=== PATIENT | female | born 1970 | race Caucasian/White ===

== ENCOUNTER 2023-11-26 13:09 | Emergency (ER) | payer OTHER ==
[2023-11-26] MEDS ORDERED: methocarbamoL 750 MG TAB ONE (15:05)
[2023-11-26] MEDS ORDERED: ACETAMINOPHEN 325 MG TABLET ONE (15:06)
--- NOTE | 2023-11-26 15:09 | RAD REPORT ---
EXAM DESCRIPTION: RAD - C Spine Ap/Lat - 11/26/2023 2:22 pm CLINICAL HISTORY: fall COMPARISON: No comparisons TECHNIQUE: Cervical spine, 3 views. FINDINGS: Cervical vertebral bodies are normal in height. Straightening of normal cervical lordosis which may be positional or secondary to muscle spasm. C7 and T1 levels are not well visualized due to superimposition of shoulder soft tissues. No fracture or acute bony process seen. Up to moderate deg enerative changes of the endplates and facet articulations, with moderate disc height loss at C4-5 an d C5-6. There is no prevertebral soft tissue thickening or other suspicious soft tissue finding. IMPRESSION: No acute osseous abnormality or subluxation. Straightening of normal lordosis which may be positional or secondary to muscle spasm. Degenerative changes as above.
--- NOTE | 2023-11-26 15:10 | RAD REPORT ---
EXAM DESCRIPTION: RAD - Thoracic Spine Ap/Lat - 11/26/2023 2:22 pm CLINICAL HISTORY: fall;Pain COMPARISON: SPINE THORACICAP LAT dated 09/25/2013 TECHNIQUE: Thoracic spine, 2 views. FINDINGS: Thoracic vertebral bodies are normal in height, with stable alignment including mild levoc onvex curvature of the upper thoracic spine, apex at T3-4. There are no acute or destructive bony pro cesses see. No paraspinal masses are identified. No disc space narrowing. IMPRESSION: No acute osseus abnormality. Stable findings as above.
--- NOTE | 2023-11-26 15:12 | RAD REPORT ---
EXAM DESCRIPTION: RAD - Femur Right - 11/26/2023 2:21 pm CLINICAL HISTORY: fall COMPARISON: No comparisons TECHNIQUE: Right femur, 2 views. FINDINGS: No fracture is identified. There is no dislocation or periosteal reaction noted. Mild dege nerative changes of the knee joint. No acute or suspicious bony finding. Surgical clips along the rig ht side of the pelvis. IMPRESSION: No acute osseus abnormality. Mild knee joint degenerative changes.
--- NOTE | 2023-11-26 15:29 | RAD REPORT ---
EXAM DESCRIPTION: RAD - Elbow Left 3 View - 11/26/2023 2:21 pm CLINICAL HISTORY: fall;Pain COMPARISON: No comparisons TECHNIQUE: Left elbow, 3 views. FINDINGS: No fracture is identified. No elevated posterior fat pad to suggest an effusion. There is no dislocation or periosteal reaction noted. No foreign body or other soft tissue abnormalit y. IMPRESSION: Negative left elbow examination.
--- NOTE | 2023-11-26 15:31 | RAD REPORT ---
EXAM DESCRIPTION: RAD - Pelvis - 11/26/2023 2:21 pm CLINICAL HISTORY: fall COMPARISON: No comparisons TECHNIQUE: Single AP view of the pelvis. FINDINGS: The visualized pelvic ring is intact. No suspicious osseous lesions. No significant degene rative changes or erosions of the hip joints. Other pelvic joints are unremarkable. Surgical clips pr oject throughout the pelvis. Visualized aspects of the abdomen and soft tissues are unremarkable. IMPRESSION: No acute osseous abnormality of the bony pelvis.
--- NOTE | 2023-11-26 15:40 | EDPHYS ---
Physician Documentation [facility] Name: Meredith Peter Age: 53 yrs Sex: Female : 1970 Arrival Date: 11/26/2023 Time: 13:09 Bed 11 Private MD: ED Physician Fermín Franks HPI: 11/25 13:45 This 53 yrs old Female presents to ER via Ambulatory with complaints of Fall Injury. 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 - Infectious Disease History:: Denies. - Social history:: Smoking status: Patient reports the use of cigarette tobacco products, smokes one pack cigarettes per day. ROS: 13:50 Constitutional: HX per HPI cp 13:50 Constitutional: Negative for fever, cp 13:50 Neuro: Negative for altered mental status, dizziness, headache, loss of consciousness, syncope, near syncope, weakness, 13:50 All other systems are negative, Exam: 13:55 Constitutional: The patient appears in no acute distress, alert, awake, non-toxic, well cp developed, well nourished, uncomfortable, 13:55 Head/Face: Normocephalic, atraumatic. cp 13:55 Eyes: Periorbital structures: appear normal, Conjunctiva: normal, no exudate, no injection, Sclera: no appreciated abnormality, Lids and lashes: appear normal, 13:55 ENT: External ear(s): are unremarkable, Nose: is normal, Mouth: Lips: moist, Oral mucosa: moist, Posterior pharynx: Airway: no evidence of obstruction, patent, 13:55 Neck: C-spine: vertebral tenderness, is not appreciated, crepitus, is not appreciated, mild tenderness to left lateral neck, 13:55 Chest/axilla: Inspection: normal, Palpation: crepitus, is not appreciated, tenderness, is not appreciated, 13:55 Cardiovascular: Rate: normal, 13:55 Respiratory: the patient does not display signs of respiratory distress, Respirations: normal, no use of accessory muscles, no retractions, labored breathing, is not present, Breath sounds: are clear throughout, no decreased breath sounds, no stridor, no wheezing, 13:55 Abdomen/GI: Inspection: abdomen appears normal, Palpation: abdomen is soft and non-tender, in all quadrants, 13:55 Back: pain, that is mild, of the thoracic area, ROM is normal, 13:55 Musculoskeletal/extremity: Extremities: noted in the right upper leg and right knee: pain, tenderness, There is no evidence of decreased ROM, noted in the left elbow: tenderness, no evidence of decreased ROM, deformity, 13:55 Neuro: Orientation: to person, place \T\ time. Mentation: is normal, Motor: moves all fours, no focal deficits, Vital Signs: 13:29 BP 143 / 82; Pulse 74; Resp 18; Temp 97.6; Pulse Ox 94% ; Weight 52.16 kg; Height 5 ft. as6 1 in. ; Pain 7/10; 13:29 Body Mass Index 21.73 (52.16 kg, 154.94 cm) as6 13:29 Pain Scale: Adult as6 MDM: 14:00 Differential diagnosis: closed head injury, contusion, fracture, laceration, multiple cp trauma. 15:40 Patient medically screened. 15:40 Data reviewed: vital signs, nurses notes, radiologic studies, plain films, and as a result, I will discharge patient. 15:40 I considered the following discharge prescriptions or medication management in the emergency department Medications were administered in the Emergency Department. See MAR. Counseling: I had a detailed discussion with the patient and/or guardian regarding the historical points, exam findings, and any diagnostic results supporting the discharge/admit diagnosis, radiology results, the need for outpatient follow up, a family practitioner, to return to the emergency department if symptoms worsen or persist or if there are any questions or concerns that arise at home. Response to treatment: the patient's symptoms have markedly improved after treatment, and as a result, I will discharge patient. 11/25 13:43 Order name: XRAY Femur RIGHT; Complete Time: 15:37 11/25 15:37 Interpretation: Report reviewed. 11/25 13:43 Order name: XRAY Pelvis; Complete Time: 15:37 11/25 15:37 Interpretation: Report reviewed. 11/25 13:43 Order name: XRAY Elbow LEFT 3 view; Complete Time: 15:37 11/25 15:38 Interpretation: Report reviewed. cp 11/25 13:43 Order name: XRAY C Spine Ap/lat; Complete Time: 15:37 cp 11/25 15:38 Interpretation: Report reviewed. cp 11/25 13:43 Order name: XRAY Thoracic Spine (Ap/lat); Complete Time: 15:37 cp 11/25 15:39 Interpretation: Report reviewed. cp Administered Medications: 15:10 Drug: Methocarbamol PO 750 mg PO once Route: PO; mb9 15:32 Follow up: Response: No adverse reaction mb9 15:10 Drug: Acetaminophen PO 650 mg PO once Route: PO; mb9 15:32 Follow up: Response: No adverse reaction mb9 Disposition: 14:24 I was immediately available on-site in the Emergency Department for consultation in the ms3 care of the patient. Disposition Summary: 11/26/23 15:40 Discharge Ordered Notes: Location: Home cp Problem: new cp Symptoms: have improved cp Condition: Stable cp Diagnosis - Fall on same level, unspecified cp - Pain in left elbow cp - Pain in right leg cp - Cervicalgia cp - Dorsalgia, unspecified cp Followup: cp - With: Private Physician - When: 2 - 3 days - Reason: Recheck today's complaints Discharge Instructions: - Discharge Summary Sheet cp - Acute Back Pain, Adult cp - Musculoskeletal Pain cp - Heat Therapy cp - Neck Exercises cp - Back Exercises cp Forms: - Medication Reconciliation Form cp - Antibiotic Education cp - Prescription Opioid Use cp - Patient Portal Instructions cp - Leadership Thank You Letter cp Prescriptions: - diclofenac potassium 50 mg Oral tablet - take 1 tablet ORAL route every 8 to 12 hours; 20 tablet; Refills: 0, Product cp Selection Permitted - methocarbamol 500 mg Oral tablet - take 1 tablet ORAL route 3-4 times daily; 30 tablet; Refills: 0, Product cp Selection Permitted Signatures: Dispatcher [employer] EDMS Norman Godinez PA PA cp Sims, Marcus, DO DO ms3 Abdon Snider RN RN as6 Mayuri Roque RN RN mb9 Corrections: (The following items were deleted from the chart) 13:44 13:44 C Spine Ap/Lat+RAD.RAD.BRZ ordered. EDMS EDMS 13:44 13:44 Spine Thoracic Ap/Lat+RAD.RAD.BRZ ordered. EDMS EDMS 11/26 00:52 11/25 13:50 Constitutional: Negative for body aches, chills, fever, poor PO intake, cp cp
--- NOTE | 2023-11-26 15:40 | ER ---
Nurse's Notes [facility] Name: Meredith Peter Age: 53 yrs Sex: Female : 1970 Arrival Date: 11/26/2023 Time: 13:09 Bed 11 Private MD: Diagnosis: Fall on same level, unspecified;Pain in left elbow;Pain in right leg;Cervicalgia;Dorsalgia, unspecified Presentation: 11/25 13:29 Chief complaint: Patient states: she slipped on a wet spot in the grocery store a nd as6 fell. c/o back and right leg pain. denies hitting head, LOC. Coronavirus screen: At this time, the client does not indicate any symptoms associated with coronavirus-19. Ebola Screen: No symptoms or risks identified at this time. Initial Sepsis Screen: Does the patient meet any 2 criteria? No. Patient's initial sepsis screen is negative. Does the patient have a suspected source of infection? No. Patient's initial sepsis screen is negative. Risk Assessment: Do you want to hurt yourself or someone else? Patient reports no desire to harm self or others. Onset of symptoms was November 26, 2023. 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 - Infectious Disease History:: Denies. - Social history:: Smoking status: Patient reports the use of cigarette tobacco products, smokes one pack cigarettes per day. Screenin:33 [facility] ED Fall Risk Assessment (Adult) History of falling in the last 3 months, mb9 including since admission Yes- single mechanical fall (1 pt) Confusion or Disorientation No (0 pts) Intoxicated or Sedated No (0 pts) Impaired Gait No (0 pts) Mobility Assist Device Used No (0 pt) Altered Elimination No (0 pt) Score/Fall Risk Level 0 - 2 = Low Risk Oriented to surroundings, Maintained a safe environment, Educated pt \T\ family on fall prevention, incl call for assistance when getting out of bed. Abuse screen: Denies threats or abuse. Nutritional screening: No deficits noted. Tuberculosis screening: No symptoms or risk factors identified. Assessment: 13:50 General: Appears in no apparent distress. Behavior is calm, cooperative. Pain: mb9 Complains of pain in back and right patella Pain does not radiate. Quality of pain is described as throbbing. Neuro: Oliveira Agitation-Sedation Scale (RASS): 0 - Alert and Calm Level of Consciousness is awake, alert, obeys commands, Oriented to person, place, time, situation, Appropriate for age. Cardiovascular: Patient's skin is warm and dry. Respiratory: Airway is patent Respiratory effort is even, unlabored, Respiratory pattern is regular, symmetrical. GI: No signs and/or symptoms were reported involving the gastrointestinal system. : No signs and/or symptoms were reported regarding the genitourinary system. EENT: No signs and/or symptoms were reported regarding the EENT system. Derm: abrasion noted to right patella. Musculoskeletal: Range of motion: limited in right knee. 15:49 Reassessment: Patient and/or family updated on plan of care and expected duration. Pain mb9 level reassessed. Patient is alert, oriented x 3, equal unlabored respirations, skin warm/dry/pink. Patient states feeling better. Patient states symptoms have improved. Vital Signs: 13:29 BP 143 / 82; Pulse 74; Resp 18; Temp 97.6; Pulse Ox 94% ; Weight 52.16 kg; Height 5 ft. as6 1 in. ; Pain 7/10; 13:29 Body Mass Index 21.73 (52.16 kg, 154.94 cm) as6 13:29 Pain Scale: Adult as6 ED Course: 13:14 Patient arrived in ED. mg5 13:15 Fermín Franks DO is Attending Physician. ms3 13:24 Norman Godinez PA is PHCP. cp 13:30 Triage completed. as6 13:31 Arm band placed on. as6 13:33 Mayuri Roque, JAMISON is Primary Nurse. mb9 13:33 Bed in low position. Call light in reach. Side rails up X 1. Provided Education on: mb9 press call light if needing anything. Client placed on continuous cardiac and pulse oximetry monitoring. NIBP monitoring applied. 13:50 No provider procedures requiring assistance completed. Patient did not have IV access mb9 during this emergency room visit. 14:23 XRAY Femur RIGHT In Process Unspecified. EDMS 14:23 XRAY Pelvis In Process Unspecified. EDMS 14:23 XRAY Elbow LEFT 3 view In Process Unspecified. EDMS 14:23 XRAY C Spine Ap/lat In Process Unspecified. EDMS 14:23 XRAY Thoracic Spine (Ap/lat) In Process Unspecified. EDMS 14:28 Patient moved back from radiology. mb9 15:01 Patient requests pain medication. mb9 15:10 Wound care: to abrasion, located on right knee was cleaned with soap and water, soaked mb9 in normal saline solution, dressed with Neosporin, band aid. Administered Medications: 15:10 Drug: Methocarbamol PO 750 mg PO once Route: PO; mb9 15:32 Follow up: Response: No adverse reaction mb9 15:10 Drug: Acetaminophen PO 650 mg PO once Route: PO; mb9 15:32 Follow up: Response: No adverse reaction mb9 Medication: 13:33 VIS not applicable for this client. mb9 Outcome: 15:40 Discharge ordered by . cp 15:50 Discharged to home via wheelchair, with family, mb9 15:50 Condition: stable 15:50 Discharge instructions given to patient, family, Instructed on discharge instructions, follow up and referral plans. Demonstrated understanding of instructions, follow-up care, medications, Prescriptions given X 2, 15:50 Patient left the ED. mb9 Signatures: Dispatcher [employer] EDMO Norman Godinez PA PA cp Sims, Marcus, DO DO ms3 Abdon Snider RN RN as6 Mayuri Roque RN RN mb9 Radha Phipps mg5
[2023-11-26 16:41] VITALS: BP 143/82; TEMP 97.6; O2SAT 94
== END 2023-11-26 15:50 | disposition home or self-care (01) ==
LOC: ER 13:09
DX: M25.522 Pain in left elbow (principal); M79.604 Pain in right leg; M54.2 Cervicalgia; W18.30XA Fall on same level, unspecified, initial encounter; F17.210 Nicotine dependence, cigarettes, uncomplicated
CPT/HCPCS: 72040; 72070; 72170; 99284